=== PATIENT | male | born 1995 | race Caucasian/White ===

== ENCOUNTER 2021-02-13 13:56 | Inpatient (IN) ==
[2021-02-13 14:55] LABS: Basophils % 0.3 %; Eosinophils # 0.2 K/mcL (0.0-0.6); Hematocrit 42.3 % (37.5-50.1); Immature Granulocytes % 0.3 % (0-4); Lymphocytes # 2.2 K/mcL (0.6-4.6); Lymphocytes % 28.7 %; Mean Corpuscular HGB Conc 33.1 g/dL (31.6-35.5); Mean Corpuscular Hemoglobin 30.5 pg (28.0-33.3); Mean Corpuscular Volume 92.2 fL (83.0-100.0); Mean Platelet Volume 10.2 fL (9.4-12.4); Monocytes # 0.5 K/mcL (0.0-1.3); Monocytes % 6.8 %; Neutrophils # 4.7 K/mcL (1.6-8.9); Platelet Count 227 K/mcL (140-400); Red Blood Count 4.59 M/mcL (4.19-5.50); Red Cell Distribution Width 11.9 % (11.5-14.5); Segmented Neutrophils % 61.9 %; White Blood Count 7.6 K/mcL (4.3-11.1)
[2021-02-13 15:01] LABS: Estimated Average Glucose 100 mg/dl; Hemoglobin A1C 5.1 %
[2021-02-13 15:10] LABS: Bilirubin,Urine Negative (Negative); Blood,Urine Negative (Negative); Clarity,Urine Clear (Clear); Color,Urine Yellow (Yellow); Glucose,Urine (UA) Normal (Normal); Ketones,Urine Negative (Negative); Leukocyte Esterase,Urine Negative (Negative); Nitrite,Urine Negative (Negative); PH,Urine 6.5 pH Units (5.0-8.0); Protein,Urine Trace mg/dL (Neg-Trace); Specific Gravity,Urine 1.027 (1.010-1.025); Urobilinogen,Urine Normal (Normal)
[2021-02-13 15:18] LABS: Alanine Aminotransferase 22 Units/L (7-52); Albumin 4.7 g/dL (3.5-5.7); Albumin/Globulin Ratio 1.8 (1.1-2.2); Alkaline Phosphatase 78 Units/L (34-104); Aspartate Amino Transferase 18 Units/L (13-39); BUN/Creatinine Ratio 13 (6-26); Bilirubin,Total 0.6 mg/dL (0.3-1.0); Blood Urea Nitrogen 11 mg/dL (6-20); Calcium 9.4 mg/dL (8.6-10.3); Carbon Dioxide 27 mEq/L (23-29); Chloride 104 mEq/L (98-107); Globulin 2.6 g/dL (2.4-3.5); Glucose 94 mg/dL (70-105); Osmolality,Calculated 289 (280-300); Potassium 3.8 mEq/L (3.5-5.1); Sodium 140 mEq/L (136-145); Total Protein 7.3 g/dL (6.4-8.9); eGFR For African Americans > 60 (> 60); eGFR For Non-African Americans > 60 (> 60)
[2021-02-13 15:36] LABS: Amphetamine Screen,Urine Negative ng/mL (Cutoff=1000); Barbiturate Screen,Urine Negative ng/mL (Cutoff=200); Benzodiazepines Screen,Urine Negative ng/mL (Cutoff=200); Cannabinoid Screen,Urine Positive ng/mL (Cutoff = 50); Cocaine Screen,Urine Negative ng/mL (Cutoff= 300); Opiate Screen,Urine Negative ng/mL (Cutoff=300); Phencyclidine Screen,Urine Negative ng/mL (Cutoff=25)
[2021-02-13 15:41] LABS: Acetaminophen < 10 mcg/mL (10-20); BUN/Creatinine Ratio 14 (6-26); Blood Urea Nitrogen 11 mg/dL (6-20); Calcium 9.6 mg/dL (8.6-10.3); Carbon Dioxide 28 mEq/L (23-29); Chloride 104 mEq/L (98-107); Chol/HDL Ratio 5.2 (0-4.9); Cholesterol 202 mg/dL (< 200); Ethanol < 10 mg/dL (Less than 10); Glucose 90 mg/dL (70-105); HDL Cholesterol 39 mg/dL (40-59); LDL Cholesterol,Calculated 138 mg/dL (< 100); Osmolality,Calculated 289 (280-300); Potassium 3.8 mEq/L (3.5-5.1); Salicylate < 2.5 mg/dL (15.0-30.0); Sodium 140 mEq/L (136-145); Triglycerides 123 mg/dL (< 150); eGFR For African Americans > 60 (> 60); eGFR For Non-African Americans > 60 (> 60)
[2021-02-13] MEDS ORDERED: *HR* LORazepam 1 MG TABLET PO PRN (18:23)
[2021-02-13] MEDS ORDERED: Mag Hydrox/Al Hydrox/Simeth 30 ML UDC PO PRN (18:23)
[2021-02-13] MEDS ORDERED: Acetaminophen 325 MG TABLET PO PRN (18:23)
[2021-02-13] MEDS ORDERED: QUEtiapine Fumarate 25 MG TABLET PO PRN (18:23)
[2021-02-13] MEDS ORDERED: Ibuprofen 400 MG TABLET PO PRN (18:23)
[2021-02-13] MEDS ORDERED: MOM Conc 10 ML UD.LIQ PO PRN (18:23)
[2021-02-13] MEDS ORDERED: *HR* LORazepam 2 MG/ML VIAL IM PRN (18:23)
[2021-02-13] MEDS ORDERED: Haloperidol Lactate 5 MG/ML VIAL IM PRN (18:23)
[2021-02-13] MEDS ORDERED: haloperidoL 5 MG TABLET PO PRN (18:23)
[2021-02-13] MEDS: hydrOXYzine pamoate 25 MG CAPSULE PO PRN (22:30)
[2021-02-14] MEDS: hydrOXYzine pamoate 25 MG CAPSULE PO PRN (20:17)
[2021-02-14] MEDS ORDERED: ARIPiprazole 5 MG TABLET PO SCH (21:00)
[2021-02-15 10:10] VITALS: BP 148/82
[2021-02-15] MEDS ORDERED: Divalproex (24 HR) 500 MG TABLET PO ONE (13:09)
[2021-02-15 16:52] LABS: Folate > 22.3 ng/mL (3.0-16.0); Vitamin D 25 Hydroxy 34 ng/mL (30-80)
== END 2021-02-15 16:40 | disposition home or self-care (01) | DRG 884 ==
LOC: EMEROOARM 13:56 → 1ANU 20:42
PROVIDERS: ADMIT Psychiatry & Neurology Forensic Psychiatry; ATTEND Psychiatry & Neurology Forensic Psychiatry